=== PATIENT | female | born 1975 | race Hispanic/Latino ===

== ENCOUNTER 2019-10-02 18:49 | Inpatient (IN) | payer SELFPAY ==
[~2019-10-02 18:49] MED LIST: Iopamidol-370 76% 500 ML 1 ML ONE
[2019-10-02 19:25] LABS: #Basophils 0.1 thou/uL (0.0-0.2); #Eosinphils 0.3 thou/uL (0.0-0.7); #Lymphocytes 4.4 thou/uL (1.20-3.40); #Neutrophils 11.1 thou/uL (1.40-6.50); %Basophils 0.7 % (0.0-1.0); %Eosinophils 1.8 % (0.0-10.0); %Lymphocytes 26.2 % (21.0-51.0); %Monocytes 5.7 % (0.0-10.0); %Neutrophils 65.7 % (42.0-75.0); Hemoglobin 14.3 g/dL (12.0-16.0); Mean Corpuscular HGB CONC 33.7 g/dL (32.0-36.0); Mean Corpuscular Hemoglobin 29.5 pg (27.0-31.0); Mean Corpuscular Volume 87.5 fL (78.0-98.0); Platelet Count 329 thou/uL (130-400); RBC Distribution Width 11.7 % (11.5-14.5); Red Blood Cell (RBC) Count 4.85 mill/uL (4.20-5.40); White Blood Cell (WBC) Count 16.9 thou/uL (4.8-10.8)
[2019-10-02 19:50] LABS: ALT (SGPT) 30 U/L (8-55); AST (SGOT) 31 U/L (5-34); Albumin 4.4 g/dL (3.5-5.0); Alkaline Phosphatase 101 U/L (40-110); Anion Gap 20 mmol/L (10-20); BUN (Urea Nitrogen) 10 mg/dL (7.0-18.7); Bilirubin, Total 0.4 mg/dL (0.2-1.2); Calc. Creatinine Clearance 0 mL/min (70-130); Calcium 9.5 mg/dL (7.8-10.44); Carbon Dioxide 18 mmol/L (22-29); Chloride 105 mmol/L (98-107); Estimated GFR-MDRD 77; Globulin 3.7 g/dL (2.4-3.5); Glucose 109 mg/dL (70-105); Potassium 3.7 mmol/L (3.5-5.1); Protein, Total 8.1 g/dL (6.0-8.3); Sodium 139 mmol/L (136-145)
[2019-10-02] MEDS ORDERED: Fentanyl 100 MCG/2 ML VIAL ONE ×2 (20:05→22:14)
[2019-10-02] MEDS ORDERED: Ondansetron PF 4 MG/2 ML Vial ONE ×2 (20:05→22:13)
[2019-10-02] MEDS ORDERED: Ketorolac Tromethamine 30 MG/ML VIAL ONE (20:14)
--- NOTE | 2019-10-02 22:15 | CT ---
EXAM: Abdomen and pelvic CT scan with contrast: HISTORY: Right lower quadrant pain COMPARISON: None FINDINGS: The visualized lung bases are clear. Liver: Unremarkable. Gallbladder:Unremarkable. Pancreas:Unremarkable Spleen:Unremarkable. Adrenal glands:Unremarkable. Kidneys:There is evidence for right renal hydroureteronephrosis with dilated ureter down to the level of the bladder. 0.3 cm obstructing calculus at the ureterovesicular junction. No solid or cystic renal mass. No evidence for bowel obstruction. No CT evidence for acute appendicitis. The urinary bladder is unremarkable. Reproductive system:Unremarkable No abscess, adenopathy, or abnormal fluid collection within the abdomen or pelvis. IMPRESSION: Right-sided hydroureteronephrosis secondary to an obstructing 0.3 cm calculus at the ureterovesicular junction.
[2019-10-02 22:58] LABS: Bacteria/HPF 4+ HPF (None Seen); Bilirubin Negative (Negative); Blood, Urine 3+ (Negative); Clarity Clear (Clear); Glucose, Urine (Dipstick) Normal (Negative); Leukocyte 75 Leu/uL (Negative); Nitrite 2+ (Negative); Pregnancy Test - Urine (BHCG) Negative (Negative); Pregu Control Background? CLEAR/WHITE (CLR/WHITE); Pregu Control Bar Appear? YES (CONTROL BAR); Protein, Urine (Dipstick) Negative (Neg-Trace); RBC/HPF 21-50 HPF (0-3); Specific Gravity 1.041 (1.002-1.036); Urobilinogen Normal mg/dL (Less than 2)
[2019-10-02] MEDS ORDERED: cefTRIAXone\\ROCEPHIN 2 GM VIAL ONE (23:15)
[2019-10-02] MEDS ORDERED: Levofloxacin 500 mg/D5W 100 ml Premix Bag ONE (23:42)
[2019-10-03] MEDS ORDERED: Iothalamate Meglumine 60% 50 ML VIAL FS ONE (01:39)
--- NOTE | 2019-10-03 01:59 | HP ---
PRESENTING COMPLAINT: Right flank pain. HISTORY OF PRESENT ILLNESS: A 43-year-old female with past medical history of factor V Leiden, but no complication with previous surgeries on child , presented because of new onset right flank pain radiating to the groin. She also admits to nausea with vomiting and poor p.o. intake due to the pain. Severity of the pain continued to worsen to 10/10 prior to presentation. She had a CT of the abdomen done that showed evidence of right obstructing renal calculus. She was also noted to have UTI. Urology has been called to evaluate the patient. PAST MEDICAL HISTORY: Significant for factor V Leiden with no complication . PAST SURGICAL HISTORY: section x2. HOME MEDICATIONS: Unknown. FAMILY HISTORY: No history of renal cancer and a sister had DVT. REVIEW OF SYSTEMS: All systems review times x14, negative. ALLERGIES: NO KNOWN DRUG ALLERGIES. SOCIAL HISTORY: The patient denies any tobacco, alcohol, or illicit drug use. PHYSICAL EXAMINATION: VITAL SIGNS: Blood pressure of 122/73, pulse ranging from 128 to 138, respiratory rate of 18, O2 saturation 95% on room air. GENERAL: Obese middle-aged female, calm, not in any distress. HEENT: Head is atraumatic, normocephalic. Pupils equal, reactive to light. RESPIRATORY: Good air entry bilaterally. No crepitation. CARDIOVASCULAR: S1 and S2, tachycardic. ABDOMEN: Full, soft. Bowel sounds positive in all four quadrants. Mild right CVA tenderness extending to the right abdomen and mid quadrant. No palpable suprapubic mass. EXTREMITIES: No calf tenderness. No pedal edema. NEUROLOGICAL: The patient is alert, conversant. LABORATORY DATA: Urinalysis shows 4+ bacteria with leukocyte esterase. Sodium 139, potassium 3.7. AST and alkaline phosphatase normal. Lipase 28. WBC 16.9, hemoglobin 14, platelet count 330. CT of the abdomen and pelvis shows evidence of right-sided hydroureteronephrosis due to an obstructing 0.3 cm calculus at the UVJ junction. IMPRESSION: 1. Right obstructing calculus. 2. Urinary tract infection. PLAN: We will admit the patient to observation. We will start the patient on empirical antibiotics with Rocephin as well as aggressive IV fluid. Marked tachycardia due to pain as well as volume depletion. We give 1 L of bolus now. Continue pain regimen. We will keep n.p.o. Urology consult for possible stent placement in a.m. DVT prophylaxis with subcutaneous heparin. ADVANCED DIRECTIVES: The patient is full code. Time spent discussing with the patient, evaluation, and explanation of to patient and spouse present in the room greater than 60 minutes. Job ID: [id number] MTDD
[2019-10-03] MEDS ORDERED: Midazolam HCl 2 mg/2 ml Vial ONE (02:01)
[2019-10-03] MEDS ORDERED: Fentanyl 100 MCG/2 ML VIAL ONE (02:02)
[2019-10-03] MEDS ORDERED: Lactated Ringer's 1,000 ML IV SCH (03:34)
[2019-10-03] MEDS ORDERED: hydrALAZINE 20 MG/ML VIAL SLOW IVP PRN (03:34)
[2019-10-03] MEDS: Sodium Chloride 0.9% 1,000 ML IV SCH ×3 (05:00→17:49)
[2019-10-03 07:18] VITALS: BMI 32.3
--- NOTE | 2019-10-03 07:21 | PRG ---
DATE OF SERVICE: 10/03/2019 SUBJECTIVE: The patient feeling better, status post stent. We will talk to nursing staff. OBJECTIVE: VITAL SIGNS: Are not recorded as of yet. ABDOMEN: Soft. No rigidity. No rebound. GENITOURINARY: Cardoso catheter is concentrated yellow, pink-tinged. IMPRESSION: 1. Ms. Hernandez is a 43-year-old female, presented last night due to acute onset of right lower quadrant abdominal discomfort, found to have 3 mm right ureterovesical junction stone with hydronephrosis. 2. Sepsis. Cultures are pending. Continue IV fluids. The patient will need broad-spectrum antibiotics until final culture and sensitivity identified. Elective treatment of stone is advised. Job ID: [id number]
--- NOTE | 2019-10-03 08:59 | RAD ---
Retrograde pyelogram: 10/03/2019 COMPARISON: None HISTORY: Sepsis, stone disease FINDINGS: 3 images are provided during a retrograde pyelogram. Hydronephrosis and hydroureter noted o n the right on the initial image. Later imaging demonstrates placement of a double-J ureteral stent on the right, proximal curl not well assessed secondary to contrast media which persists within the d ilated intrarenal collecting system/renal pelvis on the right. IMPRESSION: Hydronephrosis and hydroureter on the right with subsequent placement of a right double-J ureteral stent.
--- NOTE | 2019-10-03 09:35 | CON ---
DATE OF CONSULTATION: 10/02/2019 REASON FOR CONSULT: Obstructing ureteral stone with fever. HISTORY OF PRESENT ILLNESS: Ms. Hernandez is a 43-year-old female who presented to the emergency room due to acute onset of right lower quadrant abdominal discomfort, pressure that began [address] of the abdomen and pelvis demonstrated a right 3 mm UVJ stone with hydronephrosis. Left kidney is grossly unremarkable. She initially presented with no evidence of fever, blood pressure stable. Initially , demonstrated mild tachycardia of 105. Subsequently, I was called that she spiked to 101.9, and tachycardia to 130. Her blood pressure remained stable at 121/77, and presented initially with temperature of 98.9. She was provided Levaquin and Rocephin by the Emergency Room, pain medications include fentanyl, Zofran, and Toradol. She denies prior history of kidney stones. She has no significant past medical history, otherwise. PAST MEDICAL HISTORY: None. SURGICAL HISTORY: x2, partial hysterectomy. PSYCHIATRIC: None. SOCIAL HISTORY: Negative. She works at a dental office. Denies illicit drug use or tobacco. REVIEW OF SYSTEMS: 10-point review of systems as above, otherwise noncontributory. PHYSICAL EXAMINATION: GENERAL: The patient appears fatigued; however, cooperative to physical exam, appears stable. VITAL SIGNS: Blood pressure 120/77, previous pulse was 107, I was told by the ER nurse, her most recent heart rate is 130, T-max of 101.9. Pain currently rated 2. Initial presenting pain of 10. HEENT: Grossly unremarkable. HEART: Regular rate. LUNGS: Clear. ABDOMEN: Soft. No rigidity. No rebound. Subjective tenderness in the right lower quadrant with no suprapubic tenderness or distention of concern. FEMALE EXAM: Grossly unremarkable. EXTREMITIES: No cyanosis, clubbing, or edema. PERTINENT LABORATORY DATA AND IMAGING: White count 16, hemoglobin 14, and platelet 329. Creatinine 0.81. UA is yellow, 3+ bacteria, 2+ nitrites, 75 leuks, 21 to 50 WBCs, 4 to 6 epithelials, 4+ bacteria. CT demonstrates 3 mm right UVJ stone with hydronephrosis. No other abnormalities found. IMPRESSION AND PLAN: Ms. Hernandez is a 43-year-old female with no significant past medical history, presents with right ureterovesical junction stone, 3 mm with fever, urinalysis suspicious for urinary tract infection. As she presents with fever and tachycardia, recommend emergent ER cysto with stent placement. Critical nature of her presenting symptoms reviewed with the patient in detail and she desires to proceed. Levaquin and Rocephin provided by the ER already. Job ID: [id number] MTDD
--- NOTE | 2019-10-03 09:39 | OP ---
DATE OF PROCEDURE: 10/03/2019 PREOPERATIVE DIAGNOSES: 1. 43-year-old female with right 3 mm ureterovesical junction stone with hydronephrosis. 2. Sepsis. POSTOPERATIVE DIAGNOSES: 1. 43-year-old female with right 3 mm ureterovesical junction stone with hydronephrosis. 2. Sepsis. PROCEDURE PERFORMED: Cystoscopy, right 6 x 28 double-J ureteral stent. ANESTHESIA: General. COMPLICATIONS: None apparent. DISPOSITION: To recovery in guarded condition. INTRAOPERATIVE FINDINGS: Delayed nephrogram with right hydronephrosis, tortuous proximal ureter consistent with CT. INDICATIONS FOR PROCEDURE: Ms. Hernandez is a 43-year-old female presented with acute onset of right lower quadrant abdominal pain demonstrating right hydronephrosis with UA suspicious for UTI. She had a temperature of 101.9 and decompensated with heart rate of 130. Therefore, she is taken emergently to the OR for cysto stent. Indications reviewed. Risks and complications including bleeding, pain, infection, sepsis, injury to adjacent organs were reviewed with patient and family. They desired to proceed. DESCRIPTION OF PROCEDURE: After an informed consent was signed, patient was taken to the operating room, placed in a dorsal lithotomy position with the genital area prepped and draped in the usual surgical sterile fashion. She was already provided antibiotic therapy in the ER with Levaquin and Rocephin. Genital area was formally prepped and draped and after cystoscopy was performed, which demonstrated normal bladder mucosa. The UOs identified in normal orthotopic position. An open- ended catheter was utilized to intubate the right UO and a 0.35 Sensor wire was negotiated into the right upper pole. We negotiated to the upper pole. A retrograde pyelogram was not performed as she already had delayed nephrogram opacifying the right tortuous dilated right ureter. A 6 x 28 double-J ureteral stent was passed. She did demonstrate moderate debris, efflux from the right kidney with a stent placement. 18-Ukrainian 10 mL Cardoso catheter was placed. She is transported to the recovery room in guarded condition. She will be admitted for close observation for sepsis. Job ID: [id number] [facility]
[2019-10-03] MEDS ORDERED: Succinylcholine Chloride 20 MG/ML 10 ml SYRINGE FS ONE (09:49)
[2019-10-03] MEDS ORDERED: Lidocaine 1% PF 5 ML VIAL ONE (09:49)
[2019-10-03] MEDS ORDERED: PROPOFOL 200 MG/20 ML VIAL ONE (09:49)
[2019-10-03] MEDS: Heparin 5,000 UNITS/ML VIAL SC SCH ×3 (10:26→21:05)
[2019-10-03] MEDS: Famotidine/PF 20 mg/2ml Vial SLOW IVP SCH ×2 (10:27→21:37)
--- NOTE | 2019-10-03 17:49 | PDOC.HOSPP ---
- Subjective Subjective: Feeling much improved today. No pain. - Objective Vital Signs & Weight: Vital Signs (12 hours) Temp Pulse Resp BP Pulse Ox 10/03/19 11:20 98.5 F 103 H 20 99/58 L 91 L 10/03/19 08:11 99.8 F H 86 18 105/57 L 95 Weight Weight 212 lb 11.2 oz I&O: 10/02/19 10/03/19 10/04/19 06:59 06:59 06:59 Intake Total 3000 Output Total 700 Balance 2300 Result Diagrams: 10/02/19 19:07 10/02/19 19:07 Hospitalist ROS - Medication Medications: Active Medications Generic Name Dose Route Start Last Admin Trade Name Freq PRN Reason Stop Dose Admin Famotidine 20 mg 10/03/19 09:00 10/03/19 10:27 Pepcid SLOW IVP 20 mg Q12HR SANDOR Administration Heparin Sodium (Porcine) 5,000 units 10/03/19 09:00 10/03/19 16:25 Heparin SC 5,000 units TID SANDOR Administration Sodium Chloride 1,000 mls @ 150 mls/hr 10/03/19 03:34 10/03/19 16:25 Normal Saline 0.9% IV 1,000 mls .Q6H40M SANDOR Administration - Exam General Appearance: NAD, awake alert Heart: RRR, no murmur, no gallops, no rubs, normal peripheral pulses Respiratory: CTAB, no wheezes, no rales, no ronchi, normal chest expansion, no tachypnea, normal percussion Gastrointestinal: soft, non-tender, non-distended, normal bowel sounds, no palpable masses, no hepatomegaly, no splenomegaly, no bruit Musculoskeletal: normal tone, normal strength, no muscle wasting Psychiatric: normal affect, normal behavior, A&O x 3 Hosp A/P (1) Ureterolithiasis Code(s): N20.1 - CALCULUS OF URETER Status: Acute (2) Hydroureter Code(s): N13.4 - HYDROURETER Status: Acute (3) UTI (urinary tract infection) Status: Acute - Plan Doing much better. Discussed with Urology. Continue with IVF, IV abx Follow up cultures.
[2019-10-03] MEDS ORDERED: cefTRIAXone\\ROCEPHIN 1 GM in Sodium Chloride 0.9% 100 ML IVPB SCH (23:00)
[2019-10-04] MEDS: Sodium Chloride 0.9% 1,000 ML IV SCH ×5 (02:06→22:44)
[2019-10-04 04:29] LABS: Hemoglobin 11.4 g/dL (12.0-16.0); Mean Corpuscular HGB CONC 32.7 g/dL (32.0-36.0); Mean Corpuscular Hemoglobin 28.9 pg (27.0-31.0); Mean Corpuscular Volume 88.3 fL (78.0-98.0); Mean Platelet Volume 8.4 fL (7.4-10.4); Platelet Count 170 thou/uL (130-400); RBC Distribution Width 11.8 % (11.5-14.5); Red Blood Cell (RBC) Count 3.95 mill/uL (4.20-5.40); White Blood Cell (WBC) Count 21.7 thou/uL (4.8-10.8)
[2019-10-04 04:30] LABS: Band 5 % (5-11); Lymphocytes 15 % (21-51); MDiff Complete? YES; Monocytes 2 % (0-10); Neutrophil 78 % (42-75); Platelet Morphology Comment Appears Adequate
[2019-10-04 04:42] LABS: Anion Gap 8 mmol/L (10-20); BUN (Urea Nitrogen) 6 mg/dL (7.0-18.7); Calc. Creatinine Clearance 165 mL/min (70-130); Calcium 7.4 mg/dL (7.8-10.44); Carbon Dioxide 24 mmol/L (22-29); Chloride 111 mmol/L (98-107); Estimated GFR-MDRD Greater than 90; Glucose 95 mg/dL (70-105); Potassium 2.9 mmol/L (3.5-5.1); Sodium 140 mmol/L (136-145)
[2019-10-04] MEDS ORDERED: Potassium Chloride 20 MEQ TAB PO SCH (05:45)
[2019-10-04] MEDS ORDERED: Oxybutynin 5 MG TAB PO PRN (07:33)
[2019-10-04] MEDS ORDERED: Phenazopyridine HCl 97.5 MG TABLET PO PRN (07:33)
--- NOTE | 2019-10-04 08:08 | PRG ---
DATE OF SERVICE: 10/04/2019 VITAL SIGNS: T-max of 100.3, T-current is 99.4. 95, 18, 92 and 98/54. I's and O's 2860 and 2500 out. She is positive 360 mL. ABDOMEN: Soft, nontender, nondistended. Subjectively, she states that she feels significantly better. Her white count this morning is elevated to 21, hemoglobin 11, platelets 170, 78 neutrophils. Renal function stable at 0.67, low potassium is being supplemented by hospitalist. I did call microbiology yesterday, the ER did not send an official urine culture. Fortunately, we were able to salvage the specimen from the ER and culture has been ordered and is in progress. As the patient has low-grade fever and leukocytosis despite Rocephin, discontinue Rocephin, meropenem initiated until culture finalized. Discontinue Cardoso. Out of bed, incentive spirometry advised. Job ID: [id number]
[2019-10-04] MEDS: Famotidine/PF 20 mg/2ml Vial SLOW IVP SCH ×2 (09:06→22:44)
[2019-10-04] MEDS: Heparin 5,000 UNITS/ML VIAL SC SCH ×3 (09:06→22:44)
[2019-10-04] MEDS: Potassium Chloride 20 MEQ TAB PO SCH ×2 (09:06→22:44)
[2019-10-04] MEDS: Docusate 100 MG CAP PO SCH ×2 (09:07→22:43)
[2019-10-04] MEDS ORDERED: Meropenem 2 GM in Admixture Fee 1 EACH IVPB SCH (14:00)
[2019-10-04] MEDS: Meropenem 2 GM in Sodium Chloride 0.9% 100 ML IVPB SCH ×2 (14:48→22:44)
[2019-10-04] MEDS: Acetaminophen 325 MG TAB PO PRN (16:11)
[2019-10-04] MEDS: Ondansetron PF 4 MG/2 ML Vial IVP PRN (16:11)
[2019-10-04] MEDS: Morphine 2 MG/ML SYRINGE SLOW IVP PRN (18:06)
[2019-10-05] MEDS: Morphine 2 MG/ML SYRINGE SLOW IVP PRN ×2 (04:05→17:31)
[2019-10-05] MEDS: Sodium Chloride 0.9% 1,000 ML IV SCH ×3 (04:05→17:03)
[2019-10-05 05:59] LABS: Band 12 % (5-11); Hemoglobin 11.5 g/dL (12.0-16.0); Lymphocytes 18 % (21-51); MDiff Complete? YES; Mean Corpuscular HGB CONC 33.1 g/dL (32.0-36.0); Mean Corpuscular Hemoglobin 29.2 pg (27.0-31.0); Mean Corpuscular Volume 88.2 fL (78.0-98.0); Mean Platelet Volume 9.1 fL (7.4-10.4); Monocytes 1 % (0-10); Neutrophil 69 % (42-75); Platelet Count 172 thou/uL (130-400); RBC Distribution Width 11.6 % (11.5-14.5); Red Blood Cell (RBC) Count 3.94 mill/uL (4.20-5.40); White Blood Cell (WBC) Count 17.7 thou/uL (4.8-10.8)
[2019-10-05] MEDS: Meropenem 2 GM in Sodium Chloride 0.9% 100 ML IVPB SCH ×2 (06:30→15:08)
--- NOTE | 2019-10-05 07:11 | PDOC.HOSPP ---
- Subjective Encounter Date: 10/04/19 Subjective: Feeling some better today. No pain. - Objective Vital Signs & Weight: Vital Signs (12 hours) Temp Pulse Resp BP Pulse Ox 10/05/19 03:53 98.7 F 79 14 122/75 92 L 10/04/19 23:28 98.5 F 75 14 127/79 90 L 10/04/19 21:55 98.3 F 70 16 106/69 99 Weight Weight 212 lb 11.2 oz I&O: 10/04/19 10/05/19 10/06/19 06:59 06:59 06:59 Intake Total 2860 4680 Output Total 2500 2880 Balance 360 1800 Result Diagrams: 10/05/19 04:10 10/04/19 04:00 Hospitalist ROS - Medication Medications: Active Medications Generic Name Dose Route Start Last Admin Trade Name Freq PRN Reason Stop Dose Admin Acetaminophen 650 mg 10/04/19 15:37 10/04/19 16:11 Tylenol PO 650 mg Q6H PRN Administration Fever>101/(Mi/Mod/Sev) Pain Docusate Sodium 100 mg 10/04/19 09:00 10/04/19 22:43 Colace PO 100 mg BID SANDOR Administration Famotidine 20 mg 10/03/19 09:00 10/04/19 22:44 Pepcid SLOW IVP 20 mg Q12HR SANDOR Administration Heparin Sodium (Porcine) 5,000 units 10/03/19 09:00 10/04/19 22:44 Heparin SC Not Given TID SANDOR Sodium Chloride 1,000 mls @ 150 mls/hr 10/03/19 03:34 10/05/19 04:05 Normal Saline 0.9% IV 1,000 mls .Q6H40M SANDOR Administration Meropenem 2 gm/ Sodium 100 mls @ 0 mls/hr 10/04/19 14:00 10/05/19 06:30 Chloride IVPB 100 mls Q8HR SANDOR Administration Morphine Sulfate 2 mg 10/03/19 03:34 10/05/19 04:05 Morphine SLOW IVP 2 mg Q4H PRN Administration Pain Ondansetron HCl 4 mg 10/04/19 15:36 10/04/19 16:11 Zofran IVP 4 mg Q6H PRN Administration Nausea/Vomiting Potassium Chloride 40 meq 10/04/19 09:00 10/04/19 22:44 K-Dur PO 40 meq BID SANDOR Administration Sodium Chloride 10 ml 10/04/19 09:00 10/04/19 22:44 Flush - Normal Saline IVF 10 ml Q12HR SANDOR Administration - Exam General Appearance: NAD, awake alert Heart: RRR, no murmur, no gallops, no rubs, normal peripheral pulses Respiratory: CTAB, no wheezes, no rales, no ronchi, normal chest expansion, no tachypnea, normal percussion Gastrointestinal: soft, non-tender, non-distended, normal bowel sounds, no palpable masses, no hepatomegaly, no splenomegaly, no bruit Extremities: no cyanosis, no clubbing, no edema Skin: normal turgor Neurological: cranial nerve grossly intact, no focal deficits Musculoskeletal: normal tone Psychiatric: normal affect, normal behavior, A&O x 3 Hosp A/P (1) Ureterolithiasis Code(s): N20.1 - CALCULUS OF URETER Status: Acute (2) Hydroureter Code(s): N13.4 - HYDROURETER Status: Acute (3) UTI (urinary tract infection) Status: Acute (4) Hypokalemia Code(s): E87.6 - HYPOKALEMIA Status: Acute - Plan Doing better. Leukocytosis is a little worse today. Meropenem added pending culture. Continue with IVF, IV abx Follow up cultures. Potassium replaced orally. Recheck labs in am.
--- NOTE | 2019-10-05 07:44 | PRG ---
DATE OF SERVICE: 10/05/2019 SUBJECTIVE: The patient states that her flank pain and abdominal discomfort has resolved with the stent. Yesterday, she did have a temperature of 100.6 with generalized malaise and headache. Currently, this has resolved as her fever had defervesced with treatment. OBJECTIVE: VITAL SIGNS: T-max of 100.6, 98, 79, 14, 92, 122/75. I's and O's, 4680 in and 2880 out. She is positive 1.8 L and she has adequate oral intake over 1 L. ABDOMEN: Morbidly obese, protuberant. No rigidity. No rebound. No significant flank tenderness is appreciated. EXTREMITIES: No cyanosis, clubbing, or edema. PERTINENT LABORATORY DATA: White count 17, hemoglobin 11, platelets 172, slightly elevated bands at 12. Renal function stable at 0.7. Urine culture demonstrates resistant to quinolones, ampicillin; sensitive to cephalosporins, meropenem. IMPRESSION AND PLAN: Ms. Hernandez is a 43-year-old female with no significant past medical history, presented with right 3 mm ureterovesical junction stone. Postop day #2, status post cysto, right ureteral stent placement. Recommend continue IV meropenem. If she has no fever for 48 hours, she can be discharged with appropriate antibiotic therapy. She is provided a close followup with me as I planned elective ureteroscopy and laser lithotripsy. Recommend Infectious Disease consult as the patient may require IV PICC line for complicated pyelonephritis, UTI. [facility] covering me this weekend for p.r.n. issues. Informed the patient that she will most likely stay in-house for a continuing IV antibiotic therapy, pending Infectious Disease evaluation and recommendations. Discharge over the weekend is okay, if she is afebrile for minimum 24-48 hours, with antibiotic regimen per recommendations of infectious disease. Job ID: [id number] [facility]
[2019-10-05 08:01] LABS: Anion Gap 10 mmol/L (10-20); BUN (Urea Nitrogen) 4 mg/dL (7.0-18.7); Calc. Creatinine Clearance 178 mL/min (70-130); Carbon Dioxide 23 mmol/L (22-29); Chloride 109 mmol/L (98-107); Estimated GFR-MDRD Greater than 90; Glucose 91 mg/dL (70-105); Potassium 3.5 mmol/L (3.5-5.1); Sodium 138 mmol/L (136-145)
[2019-10-05] MEDS: Acetaminophen 325 MG TAB PO PRN ×3 (09:01→21:24)
[2019-10-05] MEDS: Famotidine/PF 20 mg/2ml Vial SLOW IVP SCH ×2 (09:01→21:25)
[2019-10-05] MEDS: Potassium Chloride 20 MEQ TAB PO SCH ×2 (09:01→21:25)
[2019-10-05] MEDS: Docusate 100 MG CAP PO SCH ×2 (09:01→21:25)
[2019-10-05] MEDS: Heparin 5,000 UNITS/ML VIAL SC SCH ×3 (09:01→21:24)
[2019-10-05] MEDS: Ondansetron PF 4 MG/2 ML Vial IVP PRN (09:12)
--- NOTE | 2019-10-05 14:56 | PDOC.HOSPP ---
- Subjective Subjective: Continues to feel better. Had a bad night with a severe headache. That is better now. Not prone to headaches. - Objective Vital Signs & Weight: Vital Signs (12 hours) Temp Pulse Resp BP Pulse Ox 10/05/19 11:09 98.2 F 72 16 111/59 L 92 L 10/05/19 07:55 98.8 F 93 18 128/73 95 10/05/19 07:14 96 10/05/19 03:53 98.7 F 79 14 122/75 92 L Weight Weight 212 lb 11.2 oz I&O: 10/04/19 10/05/19 10/06/19 06:59 06:59 06:59 Intake Total 2860 4680 Output Total 2500 2880 Balance 360 1800 Result Diagrams: 10/05/19 04:10 10/05/19 07:19 Hospitalist ROS - Medication Medications: Active Medications Generic Name Dose Route Start Last Admin Trade Name Freq PRN Reason Stop Dose Admin Acetaminophen 650 mg 10/04/19 15:37 10/05/19 14:43 Tylenol PO 650 mg Q6H PRN Administration Fever>101/(Mi/Mod/Sev) Pain Docusate Sodium 100 mg 10/04/19 09:00 10/05/19 09:01 Colace PO 100 mg BID SANDOR Administration Famotidine 20 mg 10/03/19 09:00 10/05/19 09:01 Pepcid SLOW IVP 20 mg Q12HR SANDOR Administration Heparin Sodium (Porcine) 5,000 units 10/03/19 09:00 10/05/19 14:47 Heparin SC 5,000 units TID SANDOR Administration Meropenem 2 gm/ Sodium 100 mls @ 0 mls/hr 10/04/19 14:00 10/05/19 06:30 Chloride IVPB 100 mls Q8HR SANDOR Administration Sodium Chloride 1,000 mls @ 80 mls/hr 10/05/19 07:26 10/05/19 07:30 Normal Saline 0.9% IV 1,000 mls .[id number] SANDOR Administration Morphine Sulfate 2 mg 10/03/19 03:34 10/05/19 04:05 Morphine SLOW IVP 2 mg Q4H PRN Administration Pain Ondansetron HCl 4 mg 10/04/19 15:36 10/05/19 09:12 Zofran IVP 4 mg Q6H PRN Administration Nausea/Vomiting Potassium Chloride 40 meq 10/04/19 09:00 10/05/19 09:01 K-Dur PO 40 meq BID SANDOR Administration Sodium Chloride 10 ml 10/04/19 09:00 10/05/19 09:08 Flush - Normal Saline IVF 10 ml Q12HR SANDOR Administration - Exam General Appearance: NAD, awake alert Heart: RRR, no murmur, no gallops, no rubs, normal peripheral pulses Respiratory: CTAB, no wheezes, no rales, no ronchi, normal chest expansion, no tachypnea, normal percussion Gastrointestinal: soft, non-tender, non-distended, normal bowel sounds, no palpable masses, no hepatomegaly, no splenomegaly, no bruit Skin: normal turgor, no lesions, no rashes Neurological: cranial nerve grossly intact, normal sensation to touch, no weakness, no focal deficits, no new deficit Musculoskeletal: normal tone, normal strength, no muscle wasting Psychiatric: normal affect, normal behavior, A&O x 3 Hosp A/P (1) Ureterolithiasis Code(s): N20.1 - CALCULUS OF URETER Status: Acute (2) Hydroureter Code(s): N13.4 - HYDROURETER Status: Acute (3) Hypokalemia Code(s): E87.6 - HYPOKALEMIA Status: Acute (4) E. coli UTI Code(s): N39.0 - URINARY TRACT INFECTION, SITE NOT SPECIFIED; B96.20 - UNSP ESCHERICHIA COLI THE CAUSE OF DISEASES CLASSD ELSWHR Status: Acute - Plan Doing better. Leukocytosis is a little better today. Meropenem and Rocephin. E. coli on culture with quinolone resistance. Urology consulted ID. Continue with IVF Potassium replaced orally. Headache resolved.
[2019-10-05] MEDS: cefTRIAXone\\ROCEPHIN 2 GM in Sodium Chloride 0.9% 100 ML IVPB SCH (18:19)
--- NOTE | 2019-10-06 00:33 | CON ---
DATE OF CONSULTATION: REASON FOR CONSULTATION: Pyelonephritis with obstruction. HISTORY OF PRESENT ILLNESS: A 43-year-old who has no significant past medical history and developed sudden onset of right flank pain with abdominal pain immediately before having to come to the hospital, associated nausea, vomiting, some headaches. BP was 140/80 on arrival, pulse 75, respirations 20, temperature 98.9, O2 saturation 96. There is tender abdominal exam on the right lower quadrant, quite severe in intensity. There is evidence of CV angle tenderness as well. INITIAL LABORATORY DATA: Sodium 139, creatinine 0.81, white cell count 16.9, hemoglobin 14.3, platelets 329 with a normal differential. Urinalysis with 7-10 wbc's. Microbiology with E coli resistant to quinolones, 75 to [id number] CFUs, resistant to ampicillin and sulbactam as well. The patient had a stent placed 2 days ago and bladder mucosa was normal. The plan is for an outpatient lithotripsy or other type of procedure to remove the stone, if not removed by itself. The imaging is as discussed below. Currently, she is still with moderate pain in the right flank area. Some headaches. No dyspnea. No cough. No dysuria. She really never had dysuria. No joint symptoms or skin disorder. No neurological symptoms. PAST SURGICAL HISTORY: She had a , hysterectomy. ALLERGIES: NO KNOWN DRUG ALLERGIES. FAMILY HISTORY: Noncontributory. She is . Lives in [place]. She works at a local company. PHYSICAL EXAMINATION: VITAL SIGNS: T-max 100.3, been afebrile since, BP 118/73, pulse 72, respiratory rate 16. GENERAL: There is no distress, little bit diaphoretic. HEENT: Ocular movements conjugate. No lymphadenopathy. Oral cavity normal. NECK: Supple. LUNGS: Symmetric. Clear breath sounds. CARDIOVASCULAR: S1-S1 S2 without murmurs. No S3 or S4. ABDOMEN: Soft with mild flank tenderness, right side. No bladder distention, no joint inflammatory activity. NEUROLOGIC: Nonfocal. EXTREMITIES: 1+ edema in lower extremities. Pulses 1+ in dorsalis pedis. Plantar responses are flexor. Cognitive function appears to be intact. LABORATORY DATA: Followup labs; white cell count 17.7, platelets 172 with 12% bands. IMAGING STUDIES: There is an abdomen pelvis CT with right-sided hydroureteronephrosis with 0.3 cm calculus at the UVJ, right side. ASSESSMENT: Nephrolithiasis with obstructive pyelonephritis status post stent placement. Escherichia coli has been retrieved and we will switch her to Rocephin. Conversion to oral Bactrim for discharge planning and she will remain on that until the stone is removed few days after. Stone retrieval for testing to determine preventive measures to reduce risk of stone recurrence. Job ID: [id number] MTDD
[2019-10-06] MEDS: Acetaminophen 325 MG TAB PO PRN ×4 (05:46→23:19)
[2019-10-06] MEDS: Sodium Chloride 0.9% 1,000 ML IV SCH ×2 (05:48→17:19)
[2019-10-06] MEDS: Famotidine/PF 20 mg/2ml Vial SLOW IVP SCH ×2 (08:31→20:07)
[2019-10-06] MEDS: Docusate 100 MG CAP PO SCH ×2 (08:31→20:08)
[2019-10-06] MEDS: Potassium Chloride 20 MEQ TAB PO SCH ×2 (08:31→20:08)
[2019-10-06] MEDS: Heparin 5,000 UNITS/ML VIAL SC SCH ×3 (08:31→20:08)
--- NOTE | 2019-10-06 16:33 | PDOC.HOSPP ---
- Subjective Encounter Date: 10/06/19 Subjective: afebrile and improved symptoms - Objective Vital Signs & Weight: Vital Signs (12 hours) Temp Pulse Resp BP Pulse Ox 10/06/19 15:33 98.4 F 78 16 108/71 92 L 10/06/19 11:28 98 F 70 14 112/76 94 L 10/06/19 08:30 92 L 10/06/19 07:25 98.4 F 83 16 103/66 92 L Weight Weight 212 lb 11.2 oz I&O: 10/05/19 10/06/19 10/07/19 06:59 06:59 06:59 Intake Total 4680 2250 550 Output Total 2880 Balance 1800 2250 550 Result Diagrams: 10/05/19 04:10 10/05/19 07:19 Hospitalist ROS - Review of Systems Constitutional: reports: weakness - Medication Medications: Active Medications Generic Name Dose Route Start Last Admin Trade Name Freq PRN Reason Stop Dose Admin Acetaminophen 650 mg 10/04/19 15:37 10/06/19 11:50 Tylenol PO 650 mg Q6H PRN Administration Fever>101/(Mi/Mod/Sev) Pain Docusate Sodium 100 mg 10/04/19 09:00 10/06/19 08:31 Colace PO 100 mg BID SANDOR Administration Famotidine 20 mg 10/03/19 09:00 10/06/19 08:31 Pepcid SLOW IVP 20 mg Q12HR SANDOR Administration Heparin Sodium (Porcine) 5,000 units 10/03/19 09:00 10/06/19 15:48 Heparin SC 5,000 units TID SANDOR Administration Sodium Chloride 1,000 mls @ 80 mls/hr 10/05/19 07:26 10/06/19 05:48 Normal Saline 0.9% IV 1,000 mls .[id number] SANDOR Administration Ceftriaxone Sodium 2 gm/ 100 mls @ 200 mls/hr 10/05/19 18:00 10/05/19 18:19 Sodium Chloride IVPB 100 mls 1800 SANDOR Administration Morphine Sulfate 2 mg 10/03/19 03:34 10/05/19 17:31 Morphine SLOW IVP 2 mg Q4H PRN Administration Pain Ondansetron HCl 4 mg 10/04/19 15:36 10/05/19 09:12 Zofran IVP 4 mg Q6H PRN Administration Nausea/Vomiting Potassium Chloride 40 meq 10/04/19 09:00 10/06/19 08:31 K-Dur PO 40 meq BID SANDOR Administration Sodium Chloride 10 ml 10/04/19 09:00 10/06/19 08:31 Flush - Normal Saline IVF 10 ml Q12HR SANDOR Administration - Exam General Appearance: NAD, awake alert Eye: PERRL, anicteric sclera ENT: normocephalic atraumatic, no oropharyngeal lesions, moist mucosa Neck: supple, symmetric, no JVD, no thyromegaly, no lymphadenopathy, no carotid bruit Heart: RRR, no murmur, no gallops, no rubs, normal peripheral pulses Respiratory: CTAB, no wheezes, no rales, no ronchi, normal chest expansion, no tachypnea, normal percussion Gastrointestinal: soft, non-tender, non-distended, normal bowel sounds, no palpable masses, no hepatomegaly, no splenomegaly, no bruit Skin: normal turgor, no lesions, no rashes Neurological: cranial nerve grossly intact, normal sensation to touch, no weakness, no focal deficits, no new deficit Psychiatric: normal affect, normal behavior, A&O x 3 Hosp A/P (1) E. coli UTI Code(s): N39.0 - URINARY TRACT INFECTION, SITE NOT SPECIFIED; B96.20 - UNSP ESCHERICHIA COLI THE CAUSE OF DISEASES CLASSD ELSWHR Status: Acute Plan: maybe discharge plan in am with oral antibiotics (2) Hydroureter Code(s): N13.4 - HYDROURETER Status: Resolved (3) Hypokalemia Code(s): E87.6 - HYPOKALEMIA Status: Acute (4) Ureterolithiasis Code(s): N20.1 - CALCULUS OF URETER Status: Acute - Plan old records reviewed/req, plan discussed w/ family Discharge plan in am.
[2019-10-06] MEDS: cefTRIAXone\\ROCEPHIN 2 GM in Sodium Chloride 0.9% 100 ML IVPB SCH (17:16)
[2019-10-07] MEDS: Acetaminophen 325 MG TAB PO PRN ×2 (08:15→14:20)
[2019-10-07] MEDS: Docusate 100 MG CAP PO SCH (08:16)
[2019-10-07] MEDS: Famotidine/PF 20 mg/2ml Vial SLOW IVP SCH (08:16)
[2019-10-07] MEDS: Heparin 5,000 UNITS/ML VIAL SC SCH ×2 (08:17→14:20)
[2019-10-07] MEDS: Sodium Chloride 0.9% 1,000 ML IV SCH (08:18)
[2019-10-07] MEDS: Potassium Chloride 20 MEQ TAB PO SCH (08:52)
[2019-10-07 12:49] VITALS: BP 105/71; TEMP 98.5
[2019-10-07 13:19] LABS: Band 11 % (5-11); Eosinophils 3 % (0-10); Hemoglobin 14.1 g/dL (12.0-16.0); Lymphocytes 16 % (21-51); MDiff Complete? YES; Mean Corpuscular HGB CONC 33.9 g/dL (32.0-36.0); Mean Corpuscular Hemoglobin 29.4 pg (27.0-31.0); Mean Corpuscular Volume 86.8 fL (78.0-98.0); Mean Platelet Volume 7.8 fL (7.4-10.4); Metamyelocyte 3 % (0-0); Monocytes 9 % (0-10); Myelocyte 3 % (0-0); Neutrophil 45 % (42-75); Nucleated RBC 3 % (0); Platelet Count 311 thou/uL (130-400); Platelet Morphology Comment Appears Adequate; Polychromasia MODERATE = 3-4 cells (100X) (0-2/hpf); RBC Distribution Width 11.7 % (11.5-14.5); Reactive Lymphocytes 10 % (0-10); White Blood Cell (WBC) Count 15.1 thou/uL (4.8-10.8)
--- NOTE | 2019-10-07 17:24 | DIS ---
DATE OF ADMISSION: 10/03/2019 DATE OF DISCHARGE: 10/07/2019 DISCHARGING PHYSICIAN: Dr. Amilcar Elias. ADMISSION DIAGNOSES: 1. Obstructive uropathy. 2. Urinary tract infection. CONSULTATIONS ON THE CASE: 1. Dr. Darlin Moore, Urology. 2. Dr. Delonte Ohara, Infectious Disease. PROCEDURES: At [facility], status post cystoscopy with right 6 x 28 double-J ureteral stent placement. DISCHARGING DIAGNOSES: 1. Status post obstructive uropathy with cystoscopy and eventual stent placement. 2. Escherichia coli urinary tract infection with pyelonephritis. The patient is started with oral Bactrim Double Strength for 14-day course twice a day. 3. Hypokalemia, supplemented. 4. History of nephrolithiasis. HOSPITAL COURSE: This is a very pleasant 43-year-old female, admitted to the hospital services for complaints of abdominal pain, 10/10 in severity, associated with nausea and vomiting. Was further evaluated with CT of the abdomen and pelvis showing evidence of significant obstructive uropathy with 3 mm calculus at the ureterovesicular junction causing hydroureter. The patient immediately was referred to Urology evaluation, where she was taken to the OR and cystoscopy along with eventual stent placement as described above placed with complete resolution and revival of the patient's obstruction. The patient remained more asymptomatic post procedure, was evaluated eventually for urine cultures, which showed evidence of E coli, and because of the chances of recurrent infection, the patient was prescribed Bactrim Double Strength twice a day for a 14-day course with 28 tablets and has been advised about extensive hydration and followup care with Urology in 1 to 2 weeks as scheduled. The patient was hemodynamically optimized on discharge. The patient's leukocytosis did have a down trend. DISPOSITION: Discharged home. PHYSICAL EXAMINATION: CVS: S1 and S2. CHEST: Bilateral air entry present. ABDOMEN: Soft. EXTREMITIES: No cyanosis. ALLERGIES: NO KNOWN DRUG ALLERGIES. ACTIVITY: As tolerated with fall precautions. DIET: Regular diet. DISCHARGE MEDICATIONS: 1. Oxybutynin 5 mg q.8 p.r.n. 2. Azo Standard p.r.n. for dysuria q.8. 3. Bactrim DS one tab b.i.d. for 14 days. DISCHARGE PLAN: The patient has been advised and educated about the diagnosis, treatment, and followup. The patient has been advised about followup care with Dr. Darlin Moore, Urology, in 1 to 2 weeks as scheduled. The whole discharge process including discharge coordination took me more than 35 minutes. Job ID: [id number]
[2019-10-07] MEDS ORDERED: Sulfameth/Trimethoprim DS 800-160mg TAB PO SCH (21:00)
--- NOTE | 2019-10-08 20:59 | PQF ---
AMY SCHMITZ SANJAYAMILCAR ENCINAS [id number] CLINICAL DOCUMENTATION CLARIFICATION FORM: POST DISCHARGE Addendum to original discharge summary date: ____ Late entry note date: __ DATE: 10/08/19 ATTN: Amilcar Salazar Please exercise your independent, professional judgment in responding to the clarification form. Clinical indicators are provided on the bottom of this form for your review Can you you further clarify if Sepsis is ruled in or ruled out? Sepsis [ ] Ruled in diagnosis [ ] Continue to treat [ ] Resolved [ ] Ruled out diagnosis [ ] Cannot rule out diagnosis [ ] Other diagnosis please specify [ Y] Unable to determine In addition, please specify: Present on Admission (POA): [ ] Yes [ ] No [Y ] Unable to determine For continuity of documentation, please document condition throughout progress notes and discharge summary. Thank You. CLINICAL INDICATORS - SIGNS / SYMPTOMS / LABS Consult Dr. Moore pg.1-- initially demonstrates mild tachycardia of [address] Moore pg.2- Presents with right ureterovesical junction stone ,3mm with fever OP report 10/03 pg.1- Sepsis PN 10/03 pg.1- Sepsis cultures are pending Consult Dr. Ohara- laboratory WBC 16.0, Consult Dr. Ohara- Microbiology with E.coli resistance to quinolones DS pg.1- E. Coli urinary tract infection with pyelonephritis RISK FACTORS E coli UTI- Hospitalist PN 10/06 pg.4 Hydronephrosis-PN 10/03 Dr. Moore pg.1 Pyelonephritis with Obstruction- Consult Dr. Ohara pg.1 TREATMENTS Infectious Consult- Dr. Ohara 10/05 Double J- ureteral stent placement- OP report pg.1 Urology Consult- Dr. Moore 10/03 Abdomen/Pelvis CT 10/02 Broad spectrum antibiotics- PN pg,1 Dr. Moore Urine Culture- Microbiology IV Fluids- MAR (This form is maintained as a part of the permanent medical record) 2014 [employer] All Rights Reserved Herman [email or web address] [not provided] MTDD
== END 2019-10-07 15:25 | disposition home or self-care (01) | DRG 660 ==
LOC: ERS 18:49 → SDC/OP 10-03 01:39 → 2NO 10-03 05:21 → OBSVTOIN 10-03 05:21 → SURG B 10-05 16:55
PROVIDERS: ADMIT Urology; ATTEND Urology
PROC: 0T768DZ Dilation of Right Ureter with Intraluminal Device, Via Natural or Artificial Opening Endoscopic (ICD-10-PCS; principal; 2019-10-03)
PROC: BT1DZZZ Fluoroscopy of Right Kidney, Ureter and Bladder (ICD-10-PCS; 2019-10-03)
DX: N13.6 Pyonephrosis (principal); D68.51 Activated protein C resistance; Z16.23 Resistance to quinolones and fluoroquinolones; Z16.11 Resistance to penicillins; E87.6 Hypokalemia; B96.20 Unspecified Escherichia coli [E. coli] as the cause of diseases classified elsewhere; Z90.710 Acquired absence of both cervix and uterus; E86.9 Volume depletion, unspecified
CPT/HCPCS: 36415; 74177; 74420; 80048; 80053; 81003; 81015; 81025; 83690; 85025; 87077; 87086; 87186; A4353; C1758; C1769; J0696; J1644; J1885; J1956; J2001; J2185; J2250; J2270; J2405; J2704; J3010; J3490; Q9967; S0028

== ENCOUNTER 2019-10-16 14:10 | Outpatient (CLI) | payer OTHER, SELFPAY ==
[2019-10-16 15:34] LABS: Hemoglobin 13.9 g/dL (12.0-16.0); Mean Corpuscular HGB CONC 33.9 g/dL (32.0-36.0); Mean Corpuscular Hemoglobin 29.8 pg (27.0-31.0); Mean Corpuscular Volume 88.1 fL (78.0-98.0); Mean Platelet Volume 7.6 fL (7.4-10.4); Platelet Count 393 thou/uL (130-400); Red Blood Cell (RBC) Count 4.68 mill/uL (4.20-5.40)
[2019-10-16 15:40] LABS: INR-International Normal Ratio 0.9; PTT 23.6 SEC (22.9-36.1); Prothrombin Time 12.6 SEC (12.0-14.7)
[2019-10-16 16:02] LABS: Anion Gap 13 mmol/L (10-20); BUN (Urea Nitrogen) 8 mg/dL (7.0-18.7); Calc. Creatinine Clearance 0 mL/min (70-130); Calcium 9.2 mg/dL (7.8-10.44); Carbon Dioxide 24 mmol/L (22-29); Chloride 103 mmol/L (98-107); Estimated GFR-MDRD 78; Glucose 82 mg/dL (70-105); Potassium 4.1 mmol/L (3.5-5.1); Sodium 136 mmol/L (136-145)
--- NOTE | 2019-10-18 21:25 | EKG ---
Test Reason : Blood Pressure : / mmHG Vent. Rate : 083 BPM Atrial Rate : 083 BPM P-R Int : 172 ms QRS Dur : 074 ms QT Int : 402 ms P-R-T Axes : 035 -06 045 degrees QTc Int : 472 ms Normal sinus rhythm Normal ECG No previous ECGs available Confirmed by Susan ORTIZ ([id number]) on 10/18/2019 9:25:00 PM Referred By: ARACELI Confirmed By:Susan ORTIZ
== END 2019-10-16 14:11 | disposition home or self-care (01) ==
LOC: LABBT 14:10
PROVIDERS: ATTEND Urology
DX: Z01.818 Encounter for other preprocedural examination (principal); N20.1 Calculus of ureter
CPT/HCPCS: 80048; 85027; 85610; 85730; 93005; 93010

== ENCOUNTER 2019-10-24 07:08 | Day surgery (SDC) | payer OTHER, SELFPAY ==
[2019-10-16 14:34] VITALS: BMI 31.0
[2019-10-24] MEDS ORDERED: cefTRIAXone\\ROCEPHIN 2 GM in Sodium Chloride 0.9% 100 ML IVPB SCH (08:30)
--- NOTE | 2019-10-24 08:55 | RAD ---
KUB: 10/24/2019 COMPARISON: None HISTORY: Preoperative patient FINDINGS: There is a double-J ureteral stent on the right. No discrete calcification is seen along th e course of the right ureter. The bowel gas pattern appears nonobstructed. IMPRESSION: Double-J ureteral stent present on the right with no discrete calcification along the cou rse of the stent.
[2019-10-24] MEDS ORDERED: Fentanyl 100 MCG/2 ML VIAL ONE (09:12)
[2019-10-24] MEDS ORDERED: Midazolam HCl 2 mg/2 ml Vial ONE (09:12)
[2019-10-24] MEDS ORDERED: Iothalamate Meglumine 60% 50 ML VIAL FS ONE (09:34)
[2019-10-24] MEDS ORDERED: Glycopyrrolate 0.2 MG/ML 5 ML SYRINGE ONE (09:55)
[2019-10-24] MEDS ORDERED: Rocuronium Bromide 10 MG/ML (10ML VIAL) ONE (09:55)
[2019-10-24] MEDS ORDERED: Ondansetron PF 4 MG/2 ML Vial ONE (09:55)
[2019-10-24] MEDS ORDERED: PROPOFOL 200 MG/20 ML VIAL ONE (09:55)
[2019-10-24] MEDS ORDERED: diphenhydrAMINE 50 MG/ML VIAL ONE (09:55)
[2019-10-24] MEDS ORDERED: Dexamethasone 20 MG/5 ML VIAL ONE (09:55)
[2019-10-24] MEDS ORDERED: SUGAMMADEX SODIUM 200 MG/2 ML VIAL ONE (10:19)
[2019-10-24] MEDS ORDERED: Phenazopyridine HCl 97.5 MG TABLET ONE (10:35)
--- NOTE | 2019-10-24 11:34 | OP ---
DATE OF PROCEDURE: 10/24/2019 PREOPERATIVE DIAGNOSES: A 43-year-old female with history of right 3-mm ureterovesical junction stone, presented with fever, chills, status post stent. Followup urine culture negative. POSTOPERATIVE DIAGNOSES: A 43-year-old female with history of right 3-mm ureterovesical junction stone, presented with fever, chills, status post stent. Followup urine culture negative. PROCEDURES PERFORMED: Cystoscopy, right 6 x 28 double-J ureteral stent exchange , diagnostic ureteroscopy, pyeloscopy, and retrograde pyelogram. ANESTHESIA: General LMA. COMPLICATIONS: None apparent. DISPOSITION: To recovery room in stable condition. INDICATIONS FOR THE PROCEDURE AND HISTORY: Ms. Hernandez is a pleasant 43-year- old female with no significant past medical history, who presented with temperature 101.9, tachycardia, and Escherichia coli urinary tract infection. She underwent emergent ureteral stent placement. She has been on Bactrim since surgery in which the stent was placed on October 03. Her followup urine culture negative, doing well. She presents today for ureteroscopy, laser lithotripsy, and removal of stone. Risks and complications of the procedure were reviewed with her in detail including, but not limited to, bleeding, pain, infection, injury to adjacent organs, urosepsis. All questions answered to her satisfaction. She desired to proceed. DESCRIPTION OF PROCEDURE: After an informed consent was signed, the patient was taken to the operating room, placed in a dorsal lithotomy position with the genital area prepped and draped in the usual surgical sterile fashion. A 21-Albanian cystoscope was utilized for cystoscopy. Upon entering the bladder, previous ureteral stent was removed. There was some mild incrustation of the distal pigtail consistent with accelerated incrustation. The stent was removed to the level of the meatus, and a 0.035 Sensor wire was passed through the stent without issues. The stent was completely removed. At this time, we performed a diagnostic rigid ureteroscopy. Scope was easily passed as it was passively dilated. I was able to see the area of previous stone impaction, as there was some bullous edema of distal ureter. However, I did not see an obvious stone. We did perform the rigid ureteroscopy to the level of the proximal ureter to the level of L3-L4 without issues as it was dilated. There was no stone along the course of the ureter. As such, we placed a dual-lumen access sheath 10-Albanian to the wire, and a retrograde pyelogram was performed. She had some filling defect in the proximal ureter, renal pelvis consistent with clots. A 0.035 Super Stiff wire was placed into the right upper pole and at this time with a dual-lumen access sheath removed, we passed an 11/13-Albanian x 28 navigator without issues. Flexible ureteroscopy and pyeloscopy were performed to rule out migrated stone. We surveyed the collecting system in which I did not appreciate any obvious stone debris of concern. She did have some clots in the renal pelvis, we tried to remove these; however, these were difficult to remove as clots just siphoned through. We did inspect the clot adherence. It did not look like there was any evidence of stone in the renal pelvis, nor in the ureter. She had intermittent areas of adherent clot in the ureter that were mobile with further inspection and there was no gross evidence of stone that had migrated. At this time, a 6 x 28 double-J ureteral stent was replaced, and good placement was noted. Bladder was completely evacuated. She was discharged with Bactrim DS refill until followup appointment #20 for 10 days, Ditropan 5 mg one p.o. q.8 hours p.r.n., Azo p.r.n. dysuria, Colace b.i.d., and tramadol 50 mg 1 to 2 p.o. q.6 hours p.r.n. for discomfort. As she does have some clots within the collecting system, I will see her in my office next for possible stent removal. If her voided urine demonstrates resolution of significant hematuria component, I will remove her stent. If she continues to have significant hematuria, concerning for residual clots in the collecting system, I will continue to monitor her until urine output clears further. Job ID: [id number] [facility]
--- NOTE | 2019-10-24 12:11 | RAD ---
XR IVP Retrograde History: Stones Comparison: None. Findings: Intraoperative placement of a right double-J ureteral stent. Impression: Satisfactory position of the right double-J ureteral stent.
== END 2019-10-24 13:09 | disposition home or self-care (01) ==
LOC: SDC 07:08
PROVIDERS: ATTEND Urology
PROC: 0T9680Z Drainage of Right Ureter with Drainage Device, Via Natural or Artificial Opening Endoscopic (ICD-10-PCS; principal; 2019-10-24)
DX: N20.1 Calculus of ureter (principal); N39.0 Urinary tract infection, site not specified
CPT/HCPCS: 74018; 74420; C1758; C1769; J0696; J1100; J1200; J2250; J2405; J2704; J3010; J3490